=== PATIENT | female | born 1955 | race Caucasian/White ===

== ENCOUNTER 2017-11-06 07:32 | Emergency (ER) | payer OTHER ==
--- NOTE | 2017-11-06 08:47 | UC ---
Abel Viera Julia, scribed for Elba Pearson MD on 11/06/17 at 0846 . Back Pain HPI - HPI Summary HPI Summary: This patient is a 62 year old F presenting to [facility] accompanied by her with a chief complaint of sudden left sided back pain with cold sweats upon waking this morning. The patient rates the pain 7/10 in severity. Patient reports nausea with belching. Patient denies fever, urinary symptoms, and vaginal symptoms. Back pain intermittently radiates to left side. Back pain described as a knot. Pt is not able to get comfortable. ASA taken without relief. Pt denies recent trauma. Pt gardened over weekend but has not had any back pain until today. Pt denies hx of kidney stones. - History of Current Complaint Chief Complaint: UCBackPain Stated Complaint: BACKPAIN,NAUSEA Time Seen by Provider: 11/06/17 08:26 Hx Obtained From: Patient Onset/Duration: Sudden Onset, Lasting Hours Pain Intensity: 7 Pain Scale Used: 0-10 Numeric Back Pain: Is Discrete @ - left low back, Radiates To - left lateral Character: Throbbing Associated Signs And Symptoms: Positive: Flank Pain, Other - sweats, nausea, belching - Allergies/Home Medications Allergies/Adverse Reactions: Allergies Allergy/AdvReac Type Severity Reaction Status Date / Time No Known Allergies Allergy Verified 11/06/17 07:45 PMH/Surg Hx/FS Hx/Imm Hx Previously Healthy: Yes - Surgical History Surgical History: Yes Surgery Procedure, Year, and Place: BENIGN BREAST LUMP REMOVED 1990 - Family History Known Family History: Positive: Hypertension - Social History Occupation: Employed Full-time - [employer] Lives: With Family Alcohol Use: None Substance Use Type: None Smoking Status (MU): Never Smoked Tobacco Review of Systems Constitutional: Negative - fever, Chills - sweats Gastrointestinal: Nausea - belching Genitourinary: Negative Musculoskeletal: Myalgia - back pain All Other Systems Reviewed And Are Negative: Yes Physical Exam Triage Information Reviewed: Yes Appearance: Well-Appearing, Well-Nourished, Pain Distress - mild discomfort Vital Signs: Initial Vital Signs Temp 98 F 11/06/17 07:46 Pulse 76 11/06/17 07:46 Resp 18 11/06/17 07:46 BP 138/75 11/06/17 07:46 Pulse Ox 98 11/06/17 07:46 Vital Signs Reviewed: Yes Eye Exam: Normal Eyes: Positive: Conjunctiva Clear ENT Exam: Normal ENT: Positive: Normal ENT inspection, Hearing grossly normal, Pharynx normal, TMs normal Dental Exam: Normal Neck exam: Normal Neck: Positive: Supple, Nontender, No Lymphadenopathy Respiratory Exam: Normal Respiratory: Positive: Chest non-tender, Lungs clear, Normal breath sounds, No respiratory distress, No accessory muscle use Cardiovascular Exam: Normal Cardiovascular: Positive: RRR, No Murmur Abdominal Exam: Normal Abdomen Description: Positive: Nontender, No Organomegaly, Soft. Negative: CVA Tenderness (R), CVA Tenderness (L) Bowel Sounds: Positive: Present Musculoskeletal: Positive: Other: - no spinous process pain full AROM c spine ambulatory without difficulty Neurological Exam: Normal Psychological Exam: Normal Skin Exam: Normal Diagnostics - Radiology CT A/P Radiology Interpretation Completed By: Radiologist - 1. CHOLELITHIASIS. 2. NO HYDRONEPHROSIS OR NEPHROLITHIASIS. Dr. Pearson has reviewed this report. - EKG Cardiac Rate: NL Cardiac Rhythm: Sinus: Normal - 69 BPM, no acute STT changes at [address] ST Segment: Normal Re-Evaluation - Re-Evaluation First Eval Comment: reviewed CT, urine and EKG with pt. offered pt transfer to ED for additional eval. Unclear cause of sx. pt after discussion decided to go home. will report to ED if sx worsen or change. present and in agreement. recommend apap. clear to bland. antipyyrtic. return with any questions or concerns Back Pain Course/Dx - Course Course Of Treatment: Pt with mild nausea, left back pain with radiatin to LLQ and episode of diaphoresis overnight. Pt with mild discomfort in ED. Pt denies cp. + belching. No sob. no fever no sick contact. will check urine, Ct non contrast for stone. eKG. pt took ASA Pt declined additional analegis and zofran. will reassess - Differential Dx/Diagnosis Provider Diagnoses: flank pain, nausea Discharge - Sign-Out/Discharge Documenting (check all that apply): Discharge/Admit/Transfer - Discharge Plan Condition: Stable Disposition: HOME Patient Education Materials: Acute Nausea and Vomiting (ED), Flank Pain (ED) Referrals: Shamar Blackman DO [Primary Care Provider] - Additional Instructions: The CT scan you had at the urgent care center today did not reveal the cause of your discomfort. As we discussed, your urine has been sent for additional testing and culture. If you need antibiotics or additional treatment you will receive a call from a care [employer] records clerk It is recommended you alternate ibuprofen (Advil, Motrin) and tylenol every 3 hours for pain or fever get plenty of restful sleep Okay to apply heat and then stretch your muscles to your back If you develop increased pain, vomiting, lightheadedness or chest pain, shortness of breath or ANY other concerns it is recommended you go directly to the emergency department for further testing and evaluation - Billing Disposition and Condition Condition: STABLE Disposition: HOME The documentation as recorded by the Abel branch Julia accurately reflects the service I personally performed and the decisions made by me, Elba Pearson MD.
--- NOTE | 2017-11-06 09:11 | RAD ---
CLINICAL HISTORY: Back pain, left mid flank pain COMPARISON: February 01, 2012 TECHNIQUE: Multiple contiguous axial CT scans were obtained of the abdomen and pelvis, without intravenous contrast enhancement. Coronal and sagittal multiplanar reformations are submitted for review. Oral contrast was not administered. FINDINGS: The study is limited by the lack of intravenous contrast. This limits evaluation of the solid organs and vasculature. LUNG BASES: The lung bases are clear. LIVER: The liver is normal in shape, size, contour, and attenuation. BILE DUCTS: There is no intrahepatic or extrahepatic biliary dilatation. GALLBLADDER: A gallstone is noted. There is no pericholecystic inflammatory change. PANCREAS: The pancreas is normal, without mass or ductal dilatation. SPLEEN: Normal in size and appearance. UPPER GI TRACT: Evaluation of the gastrointestinal tract is limited by incomplete gastric distention. The upper GI tract is unremarkable. SMALL BOWEL AND MESENTERY: The small bowel is normal in contour, course, and caliber. There is no obstruction or dilatation. COLON: The colon is normal in contour, course, caliber. There is no pericolonic inflammatory change. There is a tubular, vermiform, hollow viscus that is blind ending, and originates from the cecum, consistent with a normal appendix. There is no periappendiceal inflammatory change. This is best seen on coronal images 70 through 75. ADRENALS: Normal bilaterally. KIDNEYS: The kidneys are normal in shape, size, contour, and axis. There is no hydronephrosis or nephrolithiasis. BLADDER: The bladder is smooth in contour. PELVIC ORGANS: The uterus and adnexa are grossly normal for technique. AORTA: The aorta is normal. IVC: Unremarkable LYMPH NODES: There is no lymphadenopathy by size criteria. ABDOMINAL WALL: There is no evidence for abdominal wall hernia. BONES AND SOFT TISSUES: Degenerative changes are noted. OTHER: None IMPRESSION: 1. CHOLELITHIASIS. 2. NO HYDRONEPHROSIS OR NEPHROLITHIASIS.
[2017-11-06 09:34] VITALS: BP 145/78
== END 2017-11-06 09:41 | disposition home or self-care (01) ==
LOC: UCEAST 07:32
DX: M54.9 Dorsalgia, unspecified (principal); R11.0 Nausea; R14.2 Eructation; K80.20 Calculus of gallbladder without cholecystitis without obstruction; Z87.442 Personal history of urinary calculi
CPT/HCPCS: 74176; 81003; 87077; 87086; 93005; 99212; G0463

== ENCOUNTER 2017-11-06 16:12 | Emergency (ER) | payer OTHER ==
[2017-11-06 17:13] LABS: ABS Basophils 0.1 10^3/ul (0-0.2); ABS Eosinophils 0 10^3/ul (0-0.6); ABS Lymphocytes 1.3 10^3/ul (1.0-4.8); ABS Monocytes 0.3 10^3/ul (0-0.8); ABS Neutrophils 11.1 10^3/ul (1.5-7.7); ABS Nucleated RBC 0 10^3/ul; Eosinophil % 0.1 % (0-6); Hematocrit 39 % (35-47); Hemoglobin 12.9 g/dl (12.0-16.0); Lymphocyte % 10.2 % (25-47); Mean Corpuscular HGB Conc 33 g/dl (31-36); Mean Corpuscular Hemoglobin 29 pg (27-31); Mean Corpuscular Volume 86 fL (80-97); Mean Platelet Volume 8.8 um3 (7.4-10.4); Nucleated Red Blood Cells % 0; Platelet Count 328 10^3/ul (150-450); Red Blood Count 4.52 10^6/ul (4.0-5.4); Red Cell Distribution Width 14 % (10.5-15); White Blood Count 12.8 10^3/ul (3.5-10.8)
[2017-11-06] MEDS ORDERED: NS 0.9% 1000 ML* 2,000 ML IV ONE (18:44)
[2017-11-06] MEDS ORDERED: Ondansetron ODT TAB* 4 MG PO ONE (18:44)
[2017-11-06 19:41] LABS: Urine Appearance Clear; Urine Blood 1+ (Negative); Urine Color Colorless; Urine Ketones Negative (Negative); Urine Protein Negative (Negative); Urine Specific Gravity 1.001 (1.010-1.030); Urine Urobilinogen Negative (Negative)
--- NOTE | 2017-11-06 20:13 | ED ---
Dony Viera Natalie, scribed for Demar Lucas MD on 11/06/17 at 1913 . Back Pain - HPI Summary HPI Summary: The patient is a 62 y/o F presenting to the ED c/o lower left back pain starting at 04:30 with nausea and vomiting starting at at 13:00 today. The pt woke up "drenched in sweat" with knot in back at 04:30 and was nauseous, but didn't vomit. She went back to bed and still felt sick at 07:30 so she went to [facility], where the EKG and CT were negative. After going home at 12:00, she was still nauseous, and vomited once at 13:00, and then four more times at 15:00 so she came to the ED, as advised by CC. The back pain, which radiates to left lower hip, rated 5/10, is described as a muscle pain, and is constantly present. The pain is alleviated by stretching. Pt denies fever, diarrhea, abnormal urination/BM, dysuria, hematuria, melena, and hematochezia. She has hx of kidney infections with hematuria, and shingles. - History of Current Complaint Chief Complaint: EDFlankPain Stated Complaint: LT FLANK PAIN,VOMITING-SENT F/CC Time Seen by Provider: 11/06/17 18:32 Hx Obtained From: Patient Onset/Duration: Sudden Onset, Lasting Hours - starting this morning at 04:30, Still Present Onset/Duration: Started Hours Ago, Resolved Timing: Constant Back Pain Location: Is Discrete @ - left lower back Severity Initially: Moderate Severity Currently: Moderate Pain Intensity: 5 Pain Scale Used: 0-10 Numeric Character: Aching Aggravating Symptom(s): Nothing Alleviating Symptom(s): Other - stretching Associated Signs And Symptoms: Positive: Negative - fever, diarrhea, abnormal urination/BM, dysuria, hematuria, melena, and hematochezia - Allergies/Home Medications Allergies/Adverse Reactions: Allergies Allergy/AdvReac Type Severity Reaction Status Date / Time No Known Allergies Allergy Verified 11/06/17 07:45 PMH/Surg Hx/FS Hx/Imm Hx Endocrine/Hematology History: Denies: Hx Diabetes Cardiovascular History: Denies: Hx Hypertension, Hx Pacemaker/ICD History: Denies: Hx Renal Disease Sensory History: Denies: Hx Hearing Aid Psychiatric History: Denies: Hx Panic Disorder - Cancer History Hx Chemotherapy: No Hx Radiation Therapy: No - Surgical History Surgery Procedure, Year, and Place: BENIGN BREAST LUMP REMOVED 1990 Infectious Disease History: No Infectious Disease History: Reports: Hx Shingles Denies: Traveled Outside the [place] in Last 30 Days - Family History Known Family History: Positive: Hypertension - Social History Alcohol Use: None Substance Use Type: Reports: None Smoking Status (MU): Never Smoked Tobacco Review of Systems Positive: Skin Diaphoresis. Negative: Fever Gastrointestinal: Negative - hematochezia, melena Positive: Vomiting, Nausea, Other - normal BM. Negative: Diarrhea Positive: other - normal urination. Negative: dysuria, hematuria Positive: Other - lower back pain All Other Systems Reviewed And Are Negative: Yes Physical Exam - Summary Physical Exam Summary: General: well-appearing, no pain distress Skin: warm, color reflects adequate perfusion, dry Head: normal Eyes: EOMI, ANNE ENT: normal Neck: supple, nontender Respiratory: CTA, breath sounds present Cardiovascular: RRR Abdomen: soft, nontender Bowel: present Musculoskeletal: normal, strength/ROM intact Neurological: normal, sensory/motor intact, A&O x3 Psychological: affect/mood appropriate Triage Information Reviewed: Yes Vital Signs On Initial Exam: Initial Vitals Temp Pulse Resp BP Pulse Ox 98.7 F 98 18 178/79 98 11/06/17 16:16 11/06/17 16:16 11/06/17 16:16 11/06/17 16:16 11/06/17 16:16 Vital Signs Reviewed: Yes Diagnostics - Vital Signs Vital Signs Temp Pulse Resp BP Pulse Ox 11/06/17 16:16 98.7 F 98 18 178/79 98 - Laboratory Lab Results: Lab Results 11/06/17 11/06/17 11/06/17 Range/Units 17:03 17:03 17:04 WBC 12.8 H (3.5-10.8) 10^3/ul RBC 4.52 (4.0-5.4) 10^6/ul Hgb 12.9 (12.0-16.0) g/dl Hct 39 (35-47) % MCV 86 (80-97) fL MCH 29 (27-31) pg MCHC 33 (31-36) g/dl RDW 14 (10.5-15) % Plt Count 328 (150-450) 10^3/ul MPV 8.8 (7.4-10.4) um3 Neut % (Auto) 86.5 H (38-83) % Lymph % (Auto) 10.2 L (25-47) % Ellis % (Auto) 2.4 (0-7) % Eos % (Auto) 0.1 (0-6) % Baso % (Auto) 0.8 (0-2) % Absolute Neuts (auto) 11.1 H (1.5-7.7) 10^3/ul Absolute Lymphs (auto) 1.3 (1.0-4.8) 10^3/ul Absolute Monos (auto) 0.3 (0-0.8) 10^3/ul Absolute Eos (auto) 0 (0-0.6) 10^3/ul Absolute Basos (auto) 0.1 (0-0.2) 10^3/ul Absolute Nucleated RBC 0 10^3/ul Nucleated RBC % 0 Sodium 137 L (139-145) mmol/L Potassium 4.7 (3.5-5.0) mmol/L Chloride 101 (101-111) mmol/L Carbon Dioxide 29 (22-32) mmol/L Anion Gap 7 (2-11) mmol/L BUN 12 (6-24) mg/dL Creatinine 0.58 (0.51-0.95) mg/dL Est GFR ( Amer) 136.4 (>60) Est GFR (Non-Af Amer) 106.0 (>60) BUN/Creatinine Ratio 20.7 H (8-20) Glucose 111 H (70-100) mg/dL Lactic Acid 2.1 H* (0.5-2.0) mmol/L Calcium 9.3 (8.6-10.3) mg/dL Total Bilirubin 0.40 (0.2-1.0) mg/dL AST 17 (13-39) U/L ALT 14 (7-52) U/L Alkaline Phosphatase 79 (34-104) U/L C-Reactive Protein 13.82 H (< 5.00) mg/L Total Protein 7.6 (6.4-8.9) g/dL Albumin 4.3 (3.2-5.2) g/dL Globulin 3.3 (2-4) g/dL Albumin/Globulin Ratio 1.3 (1-3) Lipase < 10 L (11.0-82.0) U/L Result Diagrams: 11/06/17 17:03 11/06/17 17:03 Lab Statement: Any lab studies that have been ordered have been reviewed, and results considered in the medical decision making process. Back Pain Course/Dx - Course Course Of Treatment: Pts medications reviewed this visit. No allergies noted. High blood pressure noted and patient advised to follow up with PCP. NAUSEA IMPROVED IN THE ED AFTER ZOFRAN. DISCUSSED RESULTS WITH THE PATIENT. F/U PMD; DISCHARGE HOME STABLE. - Diagnoses Provider Diagnoses: Elevated BP without diagnosis of hypertension, Left flank pain, Nausea & vomiting Discharge - Sign-Out/Discharge Documenting (check all that apply): Discharge/Admit/Transfer - Discharge Plan Condition: Stable Disposition: HOME Prescriptions: Ondansetron ODT TAB* [Zofran 4 MG Odt TAB*] 4 mg PO Q6H PRN #10 tab.odt PRN Reason: Nausea Patient Education Materials: Flank Pain (ED), Acute Nausea and Vomiting (ED) Referrals: Shamar Blackman DO [Primary Care Provider] - Additional Instructions: FOLLOW UP WITH YOUR DOCTOR. RETURN TO THE EMERGENCY DEPARTMENT FOR ANY WORSENING OF YOUR CONDITION; PAIN, FEVER, YOU FEEL ILL OR QUESTIONS OR CONCERNS. - Billing Disposition and Condition Condition: STABLE Disposition: HOME The documentation as recorded by the [facility] branch Natalie accurately reflects the service I personally performed and the decisions made by me, Demar Lucas MD.
[2017-11-06 20:41] VITALS: BP 159/79
== END 2017-11-06 20:39 | disposition home or self-care (01) ==
LOC: ED 16:12
DX: R10.9 Unspecified abdominal pain (principal); R11.2 Nausea with vomiting, unspecified; R03.0 Elevated blood-pressure reading, without diagnosis of hypertension; Z86.19 Personal history of other infectious and parasitic diseases
CPT/HCPCS: 36415; 80053; 81003; 81015; 83605; 83690; 84484; 85025; 86140; 96360; 99283; A9270-GY

== ENCOUNTER 2018-07-16 02:05 | Observation (INO) | payer OTHER ==
[2018-07-16] MEDS ORDERED: Metoclopramide IV* 5 MG/ML 2 ML VIAL IV SLOW PU ONE (02:31)
[2018-07-16] MEDS ORDERED: NS 0.9% 1000 ML* 1,000 ML IV ONE (02:31)
[2018-07-16] MEDS ORDERED: Morphine VIAL* 4 MG/ML VIAL (1 ml vial) IV ONE (02:33)
--- NOTE | 2018-07-16 02:38 | ED ---
Abdominal Pain/Female - HPI Summary HPI Summary: Patient is a 63 y/o F presenting to ED with complaints of abdominal pain onsetting a week ago. Pain has been intermittent, tonight pain has progressively worsened and she states that she has begun to experience nausea as well. Upon review of medical records, CT ABD/PEL 11/06/17 revealed cholelithiasis. She states that she was unaware of this. On triage, pain is rated 4/10. Nothing is noted to aggravate/alleviate Sx. Home medications and allergies are reviewed. - History of Current Complaint Chief Complaint: EDAbdPain Stated Complaint: ABD PAIN Time Seen by Provider: 07/16/18 02:18 Hx Obtained From: Patient Onset/Duration: Lasting Weeks - 1, Still Present, Worse Since Timing: Intermittent Episode Lasting Severity Initially: Mild Severity Currently: Moderate - 4/10 Pain Intensity: 4 Pain Scale Used: 0-10 Numeric - 4/10 Aggravating Factor(s): Nothing Alleviating Factor(s): Nothing Associated Signs and Symptoms: Positive: Nausea Allergies/Adverse Reactions: Allergies Allergy/AdvReac Type Severity Reaction Status Date / Time No Known Allergies Allergy Verified 07/16/18 02:31 Home Medications: Home Medications NK [No Home Medications Reported] 07/16/18 [History Confirmed 07/16/18] PMH/Surg Hx/FS Hx/Imm Hx Endocrine/Hematology History: Denies: Hx Diabetes Cardiovascular History: Denies: Hx Hypertension, Hx Pacemaker/ICD History: Denies: Hx Renal Disease Sensory History: Denies: Hx Hearing Aid Psychiatric History: Denies: Hx Panic Disorder - Cancer History Hx Chemotherapy: No Hx Radiation Therapy: No - Surgical History Surgery Procedure, Year, and Place: BENIGN BREAST LUMP REMOVED 1990 Infectious Disease History: No Infectious Disease History: Reports: Hx Shingles Denies: Traveled Outside the [place] in Last 30 Days - Family History Known Family History: Positive: Hypertension - Social History Alcohol Use: None Substance Use Type: Reports: None Smoking Status (MU): Never Smoked Tobacco Review of Systems Negative: Fever Positive: Abdominal Pain, Nausea All Other Systems Reviewed And Are Negative: Yes Physical Exam - Summary Physical Exam Summary: VITAL SIGNS: Reviewed. GENERAL: Patient is a well-developed and morbidly obese female who is lying comfortable in the stretcher. Patient is not in any acute respiratory distress. HEAD AND FACE: No signs of trauma. No ecchymosis, hematomas or skull depressions. No sinus tenderness. EYES: PERRLA, EOMI x 2, No injected conjunctiva, no nystagmus. EARS: Hearing grossly intact. Ear canals and tympanic membranes are within normal limits. MOUTH: Oropharynx within normal limits. NECK: Supple, trachea is midline, no adenopathy, no JVD, no carotid bruit, no c- spine tenderness, neck with full ROM. CHEST: Symmetric, no tenderness at palpation LUNGS: Clear to auscultation bilaterally. No wheezing or crackles. CVS: Regular rate and rhythm, S1 and S2 present, no murmurs or gallops appreciated. ABDOMEN: Soft, RUQ tenderness. No signs of distention. No rebound no guarding, and no masses palpated. Bowel sounds are normal. EXTREMITIES: FROM in all major joints, no edema, no cyanosis or clubbing. NEURO: Alert and oriented x 3. No acute neurological deficits. Speech is normal and follows commands. SKIN: Dry and warm Triage Information Reviewed: Yes Vital Signs On Initial Exam: Initial Vitals Temp Pulse Resp BP Pulse Ox 97.8 F 96 18 178/83 96 07/16/18 02:10 07/16/18 02:10 07/16/18 02:10 07/16/18 02:10 07/16/18 02:10 Vital Signs Reviewed: Yes Diagnostics - Vital Signs Vital Signs Temp Pulse Resp BP Pulse Ox 07/16/18 02:10 97.8 F 96 18 178/83 96 - Laboratory Result Diagrams: 07/16/18 02:57 07/16/18 02:57 Lab Statement: Any lab studies that have been ordered have been reviewed, and results considered in the medical decision making process. - CT ct abd/pel CT Interpretation Completed By: Radiologist Summary of CT Findings: IMPRESSION: 1. Cholelithiasis with slight distention of the gallbladder and mild. pericholecystic induration which is new since 11/06 and may reflect. cholecystitis. Correlation with ultrasound may be of benefit. 2. Minimal colonic diverticulosis without diverticulitis. THIS REPORT WAS REVIEWED BY ED PHYSICIAN. Abdominal Pain Fem Course/Dx - Course Course Of Treatment: Patient is a 63 y/o F presenting to ED with complaints of abdominal pain onsetting a week ago. Pain has been intermittent, tonight pain has progressively worsened and she states that she has begun to experience nausea as well. Upon review of medical records, CT ABD/PEL 11/06/17 revealed cholelithiasis. On physical exam, RUQ tenderness is noted, patient is morbidly obese. CT ABD/PEL IMPRESSION: 1. Cholelithiasis with slight distention of the gallbladder and mild. pericholecystic induration which is new since 11/06/2017 and may reflect. cholecystitis. Correlation with ultrasound may be of benefit. 2. Minimal colonic diverticulosis without diverticulitis. Labs showed WBC 16.6, absolutes neuts 14.2, chloride 100, glucose 119, AST 11, CRP 45.03, amylase 22, lipase < 10. UA showed 1+ urine blood, trace leukocyte esterase, 1+ WBC, trace RBC, present squamous epith cells. During ED course, patient received fluids, piperacillin sod/tazobactam sod 3.375 gm in sodium chloride, morphine 4 mg IV, reglan 10 mg IV. Ultrasound is not available at this time, patient will be signed out to Dr. Witt at 0700 07/16 shift change pending US availability and disposition. - Diagnoses Provider Diagnoses: Abdominal pain Discharge - Sign-Out/Discharge Documenting (check all that apply): Sign-Out Patient Signing out patient TO: Tuan Witt Receiving patient FROM: Gagan Naqvi - Discharge Plan Referrals: Shamar Blackman DO [Primary Care Provider] - - Attestation Statements Document Initiated by Leia: Yes Documenting Scribe: RAD MORE Provider For Whom Leia is Documenting (Include Credential): GAGAN NAQVI MD Scribe Attestation: RAD Viera, scribed for GAGAN NAQVI MD on 07/16/18 at 0706. Scribe Documentation Reviewed: Yes Provider Attestation: The documentation as recorded by the RAD branch accurately reflects the service I personally performed and the decisions made by GLEN calix MD Status of Scribe Document: Viewed
[2018-07-16 03:05] LABS: ABS Basophils 0.1 10^3/ul (0-0.2); ABS Eosinophils 0.1 10^3/ul (0-0.6); ABS Lymphocytes 1.6 10^3/ul (1.0-4.8); ABS Monocytes 0.6 10^3/ul (0-0.8); ABS Neutrophils 14.2 10^3/ul (1.5-7.7); ABS Nucleated RBC 0 10^3/ul; Eosinophil % 0.5 %; Hematocrit 37 % (35-47); Hemoglobin 12.1 g/dl (12.0-16.0); Lymphocyte % 9.5 %; Mean Corpuscular HGB Conc 33 g/dl (31-36); Mean Corpuscular Hemoglobin 29 pg (27-31); Mean Corpuscular Volume 88 fL (80-97); Mean Platelet Volume 9.1 fL (7.4-10.4); Nucleated Red Blood Cells % 0; Platelet Count 314 10^3/ul (150-450); Red Blood Count 4.18 10^6/ul (4.00-5.40); Red Cell Distribution Width 13 % (10.5-15); White Blood Count 16.6 10^3/ul (3.5-10.8)
[2018-07-16 03:15] LABS: Urine Appearance Cloudy; Urine Bacteria Absent (Absent); Urine Bilirubin Negative (Negative); Urine Blood 1+ (Negative); Urine Color Yellow; Urine Glucose Negative (Negative); Urine Ketones Negative (Negative); Urine Nitrite Negative (Negative); Urine Protein Negative (Negative); Urine Red Blood Cell Trace(0-2/hpf) (Absent); Urine Squamous Epithelial Cell Present (Absent); Urine Urobilinogen Negative (Negative); Urine White Blood Cell 1+(6-10/hpf) (Absent)
[2018-07-16 03:21] LABS: INR 0.99 (0.77-1.02)
[2018-07-16 03:23] LABS: ALT 13 U/L (7-52); AST 11 U/L (13-39); Albumin 3.9 g/dL (3.2-5.2); Albumin/Globulin Ratio 1.1 (1-3); Alkaline Phosphatase 80 U/L (34-104); Amylase 22 U/L (29-103); Anion Gap 8 mmol/L (2-11); BUN/Creatinine Ratio 18.8 (8-20); Blood Urea Nitrogen 15 mg/dL (6-24); C Reactive Protein 45.03 mg/L (<8.01); CO2 Carbon Dioxide 27 mmol/L (22-32); Calcium 8.9 mg/dL (8.6-10.3); Chloride 100 mmol/L (101-111); EGFR African American 88.2 (>60); EGFR Non-African American 72.9 (>60); Globulin 3.4 g/dL (2-4); Glucose 119 mg/dL (70-100); Potassium 4.3 mmol/L (3.5-5.0); Sodium 135 mmol/L (135-145); Total Protein 7.3 g/dL (6.4-8.9)
[2018-07-16] MEDS ORDERED: Piperacillin/Tazobac ADVAN(*) 3.375 GM in NS 0.9% 100 ML* 100 ML IVPB ONE (04:47)
[2018-07-16] MEDS ORDERED: Ondansetron INJ* 2 MG/ML VIAL ONE (04:53)
[2018-07-16] MEDS ORDERED: Ondansetron INJ* 2 MG/ML VIAL IV ONE (05:10)
--- NOTE | 2018-07-16 07:16 | ED ---
Progress - Progress Note Progress Note: This pt was signed out by Dr. Naqvi at shift change, pending disposition, awaiting US. Gallbladder US, as read by radiologist IMPRESSION: #. Hepatosteatosis. #. Cholelithiasis and tenderness noted when scanning over the gallbladder fossa. Negative for gallbladder wall thickening or pericholecystic fluid to strongly suggest acute cholecystitis. #. Negative for biliary dilatation. Dr. Witt has reviewed this report. Re-Evaluation - Re-Evaluation First Eval Re-Evaluation Time: 08:15 Change: Unchanged Comment: Pt still has RUQ tenderness. She reports 3/10 pain, but she is significantly tender. She states she was vomiting for the past few days and developed pain yesterday, which was constant. Second Eval Re-Evaluation Time: 11:01 Comment: GINNA Cerda for [facility], at bedside. Course/Dx - Course Course Of Treatment: This pt was signed out by Dr. Naqvi pending a gallbladder US. US shows hepatosteatosis. #. Cholelithiasis and tenderness noted when scanning over the gallbladder fossa. Negative for gallbladder wall thickening or pericholecystic fluid to strongly suggest acute cholecystitis. #. Negative for biliary dilatation. On re-evaluation, pt still has RUQ tenderness. She reports 3/10 pain, but she is significantly tender. She states she was vomiting for the past few days and developed pain yesterday, which was constant. In the ED course the pt was given Percocet for the pain. I discussed the case with Dr. Kelly, surgeon, who reports either she or Michael Hickman will come see the pt. - Diagnoses Provider Diagnoses: Abdominal pain - Provider Notifications Discussed Care Of Patient With: Linda Kelly Time Discussed With Above Provider: 09:36 Instructed by Provider To: Other - I discussed the case with Dr. Kelly, surgeon, who reports either she or Michael Hickman will come see the pt. Discharge - Sign-Out/Discharge Documenting (check all that apply): Receiving Sign-Out Receiving patient FROM: Andrés Naqvi - Discharge Plan Referrals: Shamar Blackman DO [Primary Care Provider] - - Attestation Statements Document Initiated by Scribe: Yes Documenting Scribe: Angela Christensen Provider For Whom Scribe is Documenting (Include Credential): MD Huma Camposibfalguni Attestation: I, jeremie Younged for Tuan Witt MD on 07/16/18 at 1210. Scribe Documentation Reviewed: Yes Provider Attestation: The documentation as recorded by the scribe, Angela Christensen accurately reflects the service I personally performed and the decisions made by me, Tuan Witt MD Status of Scribe Document: Viewed
[2018-07-16] MEDS ORDERED: oxyCODONE/Acetamin 5/325 MG* TAB PO ONE (08:15)
[2018-07-16] MEDS ORDERED: Ondansetron INJ* 2 MG/ML VIAL IV PRN (14:02)
[2018-07-16] MEDS ORDERED: Acetaminophen TAB* 325 MG PO PRN (14:02)
[2018-07-16] MEDS ORDERED: HYDROmorphone INJ* 0.5 MG/0.5 ML SYRINGE IV PRN (14:02)
[2018-07-16] MEDS ORDERED: Ketorolac INJ* 30 MG/ML 1 ML VIAL IV PRN (14:02)
[2018-07-16] MEDS: Piperacillin/Tazobactam VIAL*) 3.375 GM in NS 0.9% 100 ML* 100 ML IVPB SCH ×4 (16:09→23:23)
--- NOTE | 2018-07-16 19:08 | PN ---
Progress Note - Progress Note Date of Service: 07/16/18 Note: Surgery Progress Note Please see full H&P dictated by Michael Hickman earlier today. I saw and examined this patient earlier in the day and again this afternoon. Briefly, patient is a 63 yo F with a history of obesity who presented with intermittent RUQ abdominal pain that worsened last night, prompting her to go to the ED for evaluation. Her WBC was 16.6, LFTs normal and CT abd/pelvis showed cholelithiasis, which RUQ US confirmed (CBD 5.1mm and no pericholecystic fluid, gallbladder wall thickening). Her abdominal exam was significant for tenderness in the RUQ however patient says her pain has over all improved. Given these findings patient likely has acute cholecystitis. I discussed with her the risks, benefits and alternatives of laparoscopic cholecystectomy and she would like to proceed with this while an in patient. Plan for surgery tomorrow afternoon with Dr. Cheatham. She will continue antibiotics and be NPO after midnight.
--- NOTE | 2018-07-16 20:30 | HP ---
CC: Dr. Shamar Blackman at [facility] * ADMISSION HISTORY AND PHYSICAL: DATE OF ADMISSION: 07/16/18 LOCATION: The patient was seen initially in the ED. ATTENDING SURGEON: Dr. Linda Kelly.* (DICTATED BY GINNA CHAPMAN) CHIEF COMPLAINT: Abdominal pain. HISTORY OF PRESENT ILLNESS: This is a 63-year-old generally healthy, morbidly obese female, who experienced an episode of right upper quadrant abdominal pain beginning approximately 1 week ago on Sunday. Pain occurred in the middle of the night and she described it as an upset stomach associated with hot flashes and vomiting along with pain centered in the right upper quadrant. This improved gradually over the next couple of days, though with some ongoing soreness, bloating, and gassiness. The patient continued to improve through the rest of the week until yesterday when she again felt some generalized abdominal discomfort, which progressed to the same right upper quadrant pain that she had experienced before. She did have some vomiting, though not as severe as a week ago and did have some hot flashes. She states that her pain at its peak was 4-5/10 and at present time is 2/10. Finally, she had 1 similar episode about 6 months ago, which resolved spontaneously. There is no known family history of gallbladder disease. She denies any change in the color of her urine or stools. 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 PAST MEDICAL HISTORY: No current or active medical problems other than her morbid obesity. PAST SURGICAL HISTORY: Her only prior surgeries were diagnostic laparoscopies as noted above and excision of a benign left breast lump. CURRENT MEDICATIONS: She takes no prescription medications. She takes a multivitamin most days. DRUG ALLERGIES: None known. FAMILY HISTORY: Negative for anesthesia problems, bleeding or clotting disorders. SOCIAL HISTORY: The patient is . She does not have any children. 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 She is a former smoker who quit 29 years ago with a total [id number] history. She drinks alcohol infrequently and denies other recreational drug use. REVIEW OF SYSTEMS: General: No recent constitutional symptoms or acute illnesses other than described in the HPI. She states that her weight is actually up about 20 pounds over the past year. HEENT: She has been told she has early cataracts. Otherwise, no visual changes. Cardiovascular: No history of chest pain, palpitations, hypertension, or heart murmur. Respiratory: No history of asthma, chronic cough, or shortness of breath. GI: As above per HPI. No particular lower GI symptoms. Her last colonoscopy was about 2 years ago with removal of benign polyps and recommended 3-year followup. : No history of kidney stones, dysuria, hematuria, or increased frequency. HAND STRAIGHTENER: She is up-to-date with breast exam, pelvic exam and Pap smear in November of 2017 and mammogram approximately February of 2018, all reportedly normal. Endocrine : No diabetes or thyroid dysfunction. Remainder of review of systems is negative. PHYSICAL EXAMINATION GENERAL: Well-nourished, morbidly obese female, in no acute distress. She appears comfortable, lying on the stretcher. VITAL SIGNS: Height 5 feet 7 inches, weight 315 pounds, BMI 49. Temperature 97.8, blood pressure 144/91, pulse 71, respirations 16, room air saturation 92%. HEENT: Pupils are equal and round, reactive. EOMs intact. No conjunctival pallor or scleral icterus. Oropharynx: Mucous membranes slightly dry. No intraoral lesions. NECK: No lymphadenopathy, thyromegaly, or masses. LUNGS: Clear to auscultation. No rales or wheezes. HEART: Regular rate and rhythm. No murmur noted. BREASTS: Not examined. ABDOMEN: Obese, soft with well-localized tenderness in the right upper quadrant with positive Ambriz sign. Remainder of the abdomen is soft, nontender , and without palpable masses or organomegaly. GENITALIA: Not done. RECTAL: Not done. BACK: No spinous process or CVA tenderness. EXTREMITIES: No edema. NEUROLOGICAL: Grossly intact. SKIN: Warm and dry. No suspicious rashes or lesions. DIAGNOSTIC STUDIES/LAB DATA: White blood cell count 16,600, hemoglobin 12.1. Electrolytes, BUN and creatinine are normal as are liver function tests and amylase and lipase. Glucose is mildly elevated at 119. CRP is mildly elevated at 45. Urinalysis shows 1+ blood and trace leukocyte esterase. Her ultrasound does show gallstones with gallbladder wall thickness measured at 2.9 mm. The common bile duct is normal in diameter. There are changes in the liver consistent with fatty changes. IMPRESSION: Biliary colic with acute cholecystitis. PLAN: Case was discussed with Dr. Kelly. The patient will be admitted for IV antibiotics and likely plan for laparoscopic cholecystectomy in the near future. GINNA CHAPMAN [id number]/[facility] #: [id number] [facility] STATE HOSPITALRohith
[2018-07-17] MEDS: D5W 1/2 NS KCl 20 Meq 1000 ML* 1,000 ML IV SCH ×2 (05:52→18:17)
[2018-07-17] MEDS ORDERED: Lactated Ringers 1000 ML Bag* 1,000 ML IV SCH ×2 (06:00→16:00)
[2018-07-17 07:34] LABS: ABS Basophils 0.1 10^3/ul (0-0.2); ABS Eosinophils 0.2 10^3/ul (0-0.6); ABS Lymphocytes 1.5 10^3/ul (1.0-4.8); ABS Monocytes 0.9 10^3/ul (0-0.8); ABS Neutrophils 9.1 10^3/ul (1.5-7.7); ABS Nucleated RBC 0 10^3/ul; Eosinophil % 1.4 %; Hematocrit 37 % (35-47); Hemoglobin 12.2 g/dl (12.0-16.0); Lymphocyte % 12.5 %; Mean Corpuscular HGB Conc 33 g/dl (31-36); Mean Corpuscular Hemoglobin 29 pg (27-31); Mean Corpuscular Volume 87 fL (80-97); Mean Platelet Volume 9.2 fL (7.4-10.4); Nucleated Red Blood Cells % 0; Platelet Count 262 10^3/ul (150-450); Red Blood Count 4.22 10^6/ul (4.00-5.40); Red Cell Distribution Width 13 % (10.5-15); White Blood Count 11.7 10^3/ul (3.5-10.8)
[2018-07-17 07:45] LABS: BUN/Creatinine Ratio 13.2 (8-20); EGFR African American 106.4 (>60); Potassium 4.1 mmol/L (3.5-5.0)
[2018-07-17] MEDS: Piperacillin/Tazobactam VIAL*) 3.375 GM in NS 0.9% 100 ML* 100 ML IVPB SCH ×2 (08:11→17:42)
--- NOTE | 2018-07-17 11:12 | PN ---
Progress Note - Progress Note Date of Service: 07/17/18 Note: Surgery Progress Note S: Patient is doing well. Pain is much improved but is still very mild. O: Vital Signs - 24 hr 07/16/18 07/16/18 07/16/18 13:27 13:28 13:37 Temperature 98.2 F Pulse Rate 78 74 Respiratory Rate Blood Pressure 157/81 (mmHg) O2 Sat by Pulse 96 96 Oximetry 07/16/18 07/16/18 07/16/18 14:54 15:14 19:20 Temperature 98.1 F 97.4 F 98.3 F Pulse Rate 71 80 72 Respiratory 16 16 16 Rate Blood Pressure 157/81 146/69 157/65 (mmHg) O2 Sat by Pulse 96 96 94 Oximetry 07/16/18 07/16/18 07/17/18 19:43 23:32 04:02 Temperature 97.6 F 97.7 F Pulse Rate 73 77 Respiratory 17 16 18 Rate Blood Pressure 174/67 136/67 (mmHg) O2 Sat by Pulse 95 96 Oximetry 07/17/18 07/17/18 07:32 08:00 Temperature 97.9 F Pulse Rate 65 Respiratory 16 16 Rate Blood Pressure 130/61 (mmHg) O2 Sat by Pulse 95 Oximetry Laboratory Results - last 24 hr 07/17/18 07/17/18 07:11 07:11 WBC 11.7 H RBC 4.22 Hgb 12.2 Hct 37 MCV 87 MCH 29 MCHC 33 RDW 13 Plt Count 262 MPV 9.2 Neut % (Auto) 78.0 Lymph % (Auto) 12.5 Deuel % (Auto) 7.3 Eos % (Auto) 1.4 Baso % (Auto) 0.8 Absolute Neuts (auto) 9.1 H Absolute Lymphs (auto) 1.5 Absolute Monos (auto) 0.9 H Absolute Eos (auto) 0.2 Absolute Basos (auto) 0.1 Absolute Nucleated RBC 0 Nucleated RBC % 0 Sodium 135 Potassium 4.1 Chloride 100 L Carbon Dioxide 29 Anion Gap 6 BUN 9 Creatinine 0.68 Est GFR ( Amer) 106.4 Est GFR (Non-Af Amer) 88.0 BUN/Creatinine Ratio 13.2 Glucose 114 H Calcium 9.0 Intake & Output 07/16/18 07/17/18 07/17/18 22:59 06:59 14:59 Intake Total 7681 603 6189 Output Total 2049 1600 600 Balance -1281 -654 1362 Intake: IV Fluids 1961 LR 1961 IVPB 104 105 ABX - ZOSYN 104 105 Oral 930 600 Output: Urine 2049 1600 600 Other: # Bowel Movements 0 Physical exam: abdomen soft, minimally tender in RUQ A/P: 63 F with acute cholecystitis, OR today. - Patient is scheduled for a laparoscopic cholecystectomy this afternoon, all questions were answered.
[2018-07-17] MEDS ORDERED: Succinylcholine* 20 MG/ML 10 ML VIAL ONE (14:08)
[2018-07-17] MEDS ORDERED: Propofol* 10 MG/ML 20 ML BTL ONE (14:08)
[2018-07-17] MEDS ORDERED: fentaNYL* 50 MCG/ML 2 ML VIAL (100 MCG VIAL) ONE ×3 (14:08→16:19)
[2018-07-17] MEDS ORDERED: Midazolam* 1 MG/ML 2 ML VIAL (2 MG) ONE ×2 (14:08→15:04)
[2018-07-17] MEDS ORDERED: Dexamethasone IV* 4 MG/ML 1 ML (4 MG) ONE (14:08)
[2018-07-17] MEDS ORDERED: Lidocaine 2% PF * 5 ML VIAL ONE (14:09)
[2018-07-17] MEDS ORDERED: Cisatracurium* 2 MG/ML MDV 5 ML ONE (14:09)
[2018-07-17] MEDS ORDERED: Famotidine IV* 10 MG/ML 2 ML (20 mg) ONE (14:23)
[2018-07-17] MEDS ORDERED: Ondansetron INJ* 2 MG/ML VIAL ONE (14:23)
[2018-07-17] MEDS ORDERED: Bupivacaine 0.25% W/EPI* 10 ML SDV ONE (14:35)
[2018-07-17] MEDS ORDERED: EPHEDrine (Pressors)* 50 MG/ML VIAL ONE (15:28)
[2018-07-17] MEDS ORDERED: fentaNYL* 50 MCG/ML 2 ML VIAL (100 MCG VIAL) IV PRN (15:30)
[2018-07-17] MEDS ORDERED: DiMENhydriNATE IV* 50 MG/ML VIAL IV PUSH PRN (15:30)
[2018-07-17] MEDS ORDERED: PROCHLORPERAZINE INJ 5 MG/ML 2 ML VIAL IV PRN (15:30)
[2018-07-17] MEDS ORDERED: Naloxone* 0.4 MG/ML 1 ML VIAL IV PRN (15:30)
[2018-07-17] MEDS ORDERED: Metoprolol Tartrate IV* 1 MG/ML 5 ML VIAL ONE (15:51)
[2018-07-17] MEDS ORDERED: Ketorolac INJ* 30 MG/ML 1 ML VIAL ONE ×2 (16:49→17:52)
[2018-07-17] MEDS ORDERED: HYDROmorphone INJ1* 1 MG/ML SYRINGE IV PRN (17:00)
[2018-07-17] MEDS ORDERED: HYDROcodone/ACETAMIN 5-325 MG* 1 TAB PO PRN ×2 (17:00)
--- NOTE | 2018-07-17 17:09 | OP ---
Operative Report - Blank - Operative Report Date of Operation: 07/17/18 Note: Brief Operative Note Preop Dx: Acute cholecystitis Postop Dx: same Procedure: Laparoscopic cholecystectomy Anesthesia: GET Surgeon: Linden Teacher Advisor: GINNA Hickman; ARCELIA Oquendo Fluids: 1300 ml RL EBL: 50 ml Specimen: gallbladder Drains: none Findings: dictated
--- NOTE | 2018-07-17 20:44 | OP ---
CC: Dr. Shamar Blackman * DATE OF OPERATION: 07/17/18 - ROOM #[id number] DATE OF : 59 PRIMARY CARE DOCTOR: Dr. Shamar Blackman. SURGEON: Dr. Cheatham. ASSISTANTS: GINNA Cerda and PA student, Channing Oquendo. ANESTHESIOLOGIST: Dr. Kowalski. ANESTHESIA: General. PRE-OP DIAGNOSIS: Acute cholecystitis. POST-OP DIAGNOSIS: Acute cholecystitis. OPERATIVE PROCEDURE: Laparoscopic cholecystectomy. SPECIMEN: Gallbladder. DRAINS: None. BLOOD LOSS: Approximately 50 cc. IV FLUIDS: 1300 cc of crystalloid fluid given. DESCRIPTION OF PROCEDURE: The patient was identified in the preoperative area, I discussed the case with her. Went over the risks, benefits, and alternatives. I had reviewed her chart including labs and radiology and agree with diagnosis of acute cholecystitis. I outlined the details of the procedure of laparoscopic cholecystectomy to her going over the possible complications as well, which included but were not limited to bleeding, infection, common bile duct or bowel injury, need for additional procedures, need for open procedures. The patient's questions were answered and consent was signed. She was taken to the operating room, preoperative antibiotics had already been given. General anesthesia was then given, sequential devices were placed on the bilateral lower extremities and the patient's abdomen was prepped and draped in the standard surgical fashion. Time-out was performed. Folds of the umbilicus were elevated anteriorly and a Veress needle was attempted to be placed into the abdominal cavity. This proved difficult given the patient's body habitus and we abandoned this and performed a right upper quadrant incision approximately 2 fingerbreadths below the costal margin along the mid clavicular line. This was deepened down to the anterior fascia, which was grasped and a Veress needle appropriately placed into the abdominal cavity, which was then allowed to insufflate to a pressure of 15 mmHg. The patient tolerated the insufflation well. A periumbilical incision was made and a 12 mm trocar was inserted through this. Laparoscope was inserted and there was no evidence of injury from the initial attempt at a trocar insertion. It was difficult to see the Veress needle, so this remained in place and a 12 mm trocar was placed in the subxiphoid area. The laparoscope was shifted to this side where we could see the Veress needle enter the abdomen. This was removed and there was no evidence of injury from this Veress needle insertion. Additional 5 mm trocar was then placed along the right costal margin laterally and then through the incision we had already made to obtain a pneumoperitoneum. The patient was repositioned with the right side up and reverse Trendelenburg. The gallbladder fundus was identified. This was unable to be grasped and we placed an aspiration needle in and removed 60 cc of thick bile. This was passed off and allowed us to grasp the fundus of the gallbladder. With blunt dissection, we were able to sweep the omental attachments down until we could see the full body and infundibular region of the gallbladder. I could not make out the common bile duct given the patient's body habitus and we did not get critical view at this time. The infundibular region of the gallbladder was retracted towards the right lower quadrant as best as we could. There was a stone at this site. We took the thickened peritoneum off the lateral aspect of the gallbladder and off the medial aspect. This was difficult to manipulate given both the acute and chronic inflammation. What appeared to be a cystic artery was identified, this was isolated and singly clipped proximally and cut distally. We did see some back bleeding as well as the lumen and felt confident that this is the artery. We were able to clip the distal portion of it and then continued our dissection. We isolated what appeared to be the cystic duct, but prior to clipping this, I dissected posteriorly until we were at the mid body of the gallbladder posteriorly and felt confident that this was the only single structure entering into the gallbladder. This was then doubly clipped and ligated, and the gallbladder was taken off the liver wall slowly with some violation of entry into the liver parenchyma. This did prove difficult given the patient's body habitus and the size of the liver. Liver did not show any discrete lesions or any marbling, but it was quite large. The gallbladder was ultimately removed and we placed an endoscopic retrieval bag along with the stone that we did see attempting to fall out of the opening we had made in the gallbladder, but no stones were indeed spilled, only a small amount of bile. Once this was placed in the endoscopic retrieval bag, we placed it over the liver. Next, we copiously irrigated the abdomen at the site of the liver bed. We did utilize cautery to gain hemostasis throughout the area. We did have injury to the capsule of the liver and this caused some bleeding that was controlled easily with cautery. I did place a Surgicel and tucked a gauze at this site while we suctioned over the liver. We then next looked at the cystic duct stump , cystic artery stump which showed no evidence of bile leakage or bleeding. We then removed the gauze as well as the Surgicel and placed an additional Surgicel at the site of the liver bed. Hemostasis was achieved and we allowed the patient to be placed back to neutral position. Next, the gallbladder was removed from the subxiphoid port site. We did extend the incision as well as the fascial incision with scissors and this allowed us to remove the gallbladder and pass it off as specimen. Next, a 12-mm trocar was reinserted at the subxiphoid area and we placed a _ and closed the anterior fascia at the periumbilical 12-mm trocar site with an 0 Vicryl suture using an Endoclose device. Next, the abdomen was allowed to collapse, trocars were removed under direct vision, counts were good, and we reapproximated the fascia at the subxiphoid site where the gallbladder was removed with interrupted 0 Vicryl stitches. Hemostasis was good and we closed the 4 skin incisions with 4-0 Monocryl subcuticular sutures followed by Steri-Strips and sterile dressing. The patient was woken up in the OR and transferred back in stable condition. [id number]/[facility] #: [id number] MTDD
[2018-07-18] MEDS: Piperacillin/Tazobactam VIAL*) 3.375 GM in NS 0.9% 100 ML* 100 ML IVPB SCH ×2 (00:35→08:09)
[2018-07-18] MEDS: D5W 1/2 NS KCl 20 Meq 1000 ML* 1,000 ML IV SCH (02:38)
[2018-07-18 08:27] VITALS: BP 140/70
--- NOTE | 2018-07-18 09:13 | DS ---
CC: Shamar Blackman DO; [facility]; [facility] * DISCHARGE SUMMARY: DATE OF ADMISSION: 07/16/18 DATE OF DISCHARGE: 07/18/18 HOSPITAL COURSE: Ms. Vega is a 63-year-old female admitted with acute cholecystitis on 07/16/18. Please see H and P for full details. She was admitted and maintained n.p.o. status and started on antibiotics. On hospital day 2, the patient went to the operating room and underwent a laparoscopic cholecystectomy. Please see operative report for details. Postoperative period , the patient did well, was admitted in the overnight due to the late hour of the surgery. In the overnight period, she had no issues. By postoperative day 1, the patient was seen and doing well and was planned for discharge. Physical exam was performed on day of discharge. She was afebrile, vital signs stable. Urine output good. Alert and oriented x2, in no apparent distress, no jaundice. Abdomen soft, nondistended, obese, minimal tenderness. Dressings intact, without cellulitis of the surrounding areas. No calf tenderness. PLAN: Discharge home, postoperative day 1 laparoscopic cholecystectomy. Plan for followup next week. Discharge instruction sheet given. The patient is given a prescription for Percocet. No antibiotics necessary. [id number]/[facility] #: [id number] MTDD
== END 2018-07-18 10:30 | disposition home or self-care (01) ==
LOC: ED 02:05 → SSU 14:02
PROVIDERS: ADMIT Internal Medicine; ATTEND Surgery
DX: K81.0 Acute cholecystitis (principal); R10.9 Unspecified abdominal pain; K76.89 Other specified diseases of liver; R11.0 Nausea
CPT/HCPCS: 36415; 74176; 76705; 80048; 80053; 81003; 81015; 82150; 83690; 83735; 85025; 85610; 85730; 86140; 87086; 88304; 96365; 96366; 96375; 99284; A9270-GY; G0378; J0330; J1100; J1885; J2250; J2270; J2405; J2543; J2704; J2765; J3010; J3490